=== PATIENT | male | born 1965 | race Caucasian/White ===

== ENCOUNTER 2019-12-31 09:20 | Emergency (ER) | payer BC, MEDICAID, MEDICARE ==
[~2019-12-31] VITALS: Ht 175.3 cm; Wt 73.9 kg
[~2019-12-31 09:20] MED LIST: ALBU1.25 IH; ALBU4TAB3 PO; ALBU8.5H6 IH; CLIN150C14 PO; DIVA250T4 PO; LORA-434 PO; Nicotine TD; QUET200T4 PO; QUET50TA5 PO; TRAM50TA PO; ZOLP10TA PO
[2019-12-31] MEDS ORDERED: IV NORMAL SALINE 1000ML BAG 1,000 ML IV ONE (10:15)
[2019-12-31] MEDS ORDERED: LIDOCAINE 2% JELLY 6ML IN APPLICATOR. MM ONE (10:15)
--- NOTE | 2019-12-31 10:17 | PHYS DOC ---
Past Medical History Past Medical History: Anxiety, Asthma, Bipolar, Bronchitis, COPD, Depression, MRSA Additional Past Medical Histor: scoliosis, hx of lung infection, chronic back pain, RT SHOULDER #2 SEPERATI Past Surgical History: Other Additional Past Surgical Histo: 3 ribs removed, right loaiza muscle removed d/t infection Smoking Status: Current Every Day Smoker Alcohol Use: None Drug Use: Amphetamine, Marijuana Adult General Chief Complaint Chief Complaint: URINARY RETENTION HPI HPI Patient is a pleasant 54-year-old male who presents to the emergency department for evaluation, requesting a Mason catheterization. He states he has been diagnosed with prostatic hypertrophy in the past, and actually has an appointment to see urology upcoming at in 2 days. He states that he has had difficulty initiating a urine stream, and his urine stream will stop prematurely midstream. He states he is having discomfort when his urine stream cuts off, feeling as if he has to urinate. He has not had any fevers, nausea, or vomiting. He has been eating well, but states he has been consciously limiting his liquid oral intake, to decrease his need to urinate. He has not had any dysuria, or penile discharge, and reports no sexual intercourse in the past several years. He states he does have a past history of amphetamine and marijuana abuse, but states he has been clean for several months trying to get his life back on track. There are no alleviating or exacerbating factors to his symptoms otherwise. Review of Systems Review of Systems Constitutional: Denies fever or chills [] Eyes: Denies change in visual acuity, redness, or eye pain [] HENT: Denies nasal congestion or sore throat [] Respiratory: Denies cough or shortness of breath [] Cardiovascular:The patient denies any shortness of breath, chest pain, palpitations, or orthopnea[] GI: Denies abdominal pain, nausea, vomiting, bloody stools or diarrhea [] : Denies dysuria or hematuria, or penile discharge. Denies flank pain [] Musculoskeletal: Denies back pain or joint pain [] Integument: Denies rash or skin lesions [] Neurologic: Denies headache, focal weakness or sensory changes [] Endocrine: Denies polyuria or polydipsia [] All other systems were reviewed and found to be within normal limits, except as documented in this note. Current Medications Current Medications Current Medications Medications (Trade) Dose Ordered Sig/Ayan Start Time Stop Time Status Last Admin Dose Admin Lidocaine HCl (Glydo (Lidocaine) Jelly) 1 christi 1X ONCE 12/31/19 10:15 12/31/19 10:16 DC Sodium Chloride 1,000 ml @ 1,000 mls/hr 1X ONCE 12/31/19 10:15 12/31/19 11:14 DC 12/31/19 10:40 1,000 MLS/HR Allergies Allergies Allergies Coded Allergies Type Severity Reaction Last Updated Verified No Known Drug Allergies 02/28/14 No Physical Exam Physical Exam PHYSICAL EXAM: CONSTITUTIONAL: Well developed, well nourished HEAD: normocephalic, atraumatic EENT: PERRL, EOMI. Conjunctivae normal color, sclerae non-icteric; moist mucous membranes. NECK: Supple, non-tender; no meningismus. LUNGS: Lungs CTA, breathing even and unlabored. Normal air movement. HEART: Regular rate and rhythm, no murmur CHEST: No deformity; non-tender ABDOMEN: The abdomen is soft, there is mild diffuse tenderness to palpation in lower abdomen without rebound or guarding, the remainder the abdomen is soft and non-tender, no masses or bruits. EXTREM: Normal ROM; no deformity, no calf tenderness. Normal pulses palpable in all extremities. There is no pedal edema. SKIN: No rash; no diaphoresis NEURO: Alert; normal speech and cognition; CN's grossly intact; strength grossly intact without focal deficit. BACK: No CVA TTP. GENITOURINARY:Normal external genitalia. There is no penile discharge, or testicular tenderness to palpation. Current Patient Data Vital Signs Vital Signs Date Time Temp Pulse Resp B/P (MAP) Pulse Ox O2 Delivery O2 Flow Rate FiO2 12/31/19 09:30 97.8 98 20 132/77 (95) 100 Room Air 97.8 Lab Values Laboratory Tests Test 12/31/19 10:10 12/31/19 10:30 White Blood Count 4.9 x10^3/uL (4.0-11.0) Red Blood Count 5.13 x10^6/uL (4.30-5.70) Hemoglobin 15.7 g/dL (13.0-17.5) Hematocrit 45.5 % (39.0-53.0) Mean Corpuscular Volume 89 fL (79-100) Mean Corpuscular Hemoglobin 31 pg (25-35) Mean Corpuscular Hemoglobin Concent 34 g/dL (31-37) Red Cell Distribution Width 12.9 % (11.5-14.5) Platelet Count 294 x10^3/uL (140-400) Neutrophils (%) (Auto) 59 % (31-73) Lymphocytes (%) (Auto) 27 % (24-48) Monocytes (%) (Auto) 12 % (0-9) H Eosinophils (%) (Auto) 2 % (0-3) Basophils (%) (Auto) 1 % (0-3) Neutrophils # (Auto) 2.9 x10^3/uL (1.8-7.7) Lymphocytes # (Auto) 1.3 x10^3/uL (1.0-4.8) Monocytes # (Auto) 0.6 x10^3/uL (0.0-1.1) Eosinophils # (Auto) 0.1 x10^3/uL (0.0-0.7) Basophils # (Auto) 0.0 x10^3/uL (0.0-0.2) Sodium Level 139 mmol/L (136-145) Potassium Level 4.2 mmol/L (3.5-5.1) Chloride Level 103 mmol/L (98-107) Carbon Dioxide Level 26 mmol/L (21-32) Anion Gap 10 (6-14) Blood Urea Nitrogen 14 mg/dL (8-26) Creatinine 1.1 mg/dL (0.7-1.3) Estimated GFR (Cockcroft-Gault) 70.0 BUN/Creatinine Ratio 13 (6-20) Glucose Level 87 mg/dL (70-99) Calcium Level 8.9 mg/dL (8.5-10.1) Total Bilirubin 0.2 mg/dL (0.2-1.0) Aspartate Amino Transferase (AST) 19 U/L (15-37) Alanine Aminotransferase (ALT) 29 U/L (16-63) Alkaline Phosphatase 89 U/L (46-116) Total Protein 7.3 g/dL (6.4-8.2) Albumin 3.6 g/dL (3.4-5.0) Albumin/Globulin Ratio 1.0 (1.0-1.7) Urine Collection Type U cath Urine Color Yellow Urine Clarity Clear Urine pH 5.5 Urine Specific Motley 1.010 Urine Protein Negative mg/dL (NEG-TRACE) Urine Glucose (UA) Negative mg/dL (NEG) Urine Ketones (Stick) Negative mg/dL (NEG) Urine Blood Negative (NEG) Urine Nitrite Negative (NEG) Urine Bilirubin Negative (NEG) Urine Urobilinogen Dipstick 0.2 mg/dL (0.2 mg/dL) Urine Leukocyte Esterase Negative (NEG) Urine RBC 0 /HPF (0-2) Urine WBC 0 /HPF (0-4) Urine Squamous Epithelial Cells Occ /LPF Urine Bacteria 0 /HPF (0-FEW) Laboratory Tests 12/31/19 10:10 Laboratory Tests 12/31/19 10:10 EKG EKG [] Radiology/Procedures Radiology/Procedures [] Course & Med Decision Making Course & Med Decision Making Pertinent Labs studies reviewed. (See chart for details) []11:35 AM: The patient is feeling significantly better after Mason ca theterization. Although the bladder scanner indicated approximately 175 mL of urine in the bladder, the patient has drained over 500 mL of urine. I discussed importance of close urology follow-up as scheduled and return precautions. Dragon Disclaimer Dragon Disclaimer This electronic medical record was generated, in whole or in part, using a voice recognition dictation system. Departure Departure Impression: Primary Impression: Urinary retention Disposition: 01 HOME, SELF-CARE Condition: STABLE Patient Instructions: Mason Catheter Care, Adult, Urinary Retention, Acute, Male Additional Instructions: Follow-up with urology as scheduled. Scripts Tamsulosin Hcl (FLOMAX) 0.4 Mg Cap.er.24h 1 CAP PO DAILY, #30 CAP 0 Refills Prov: MARION JANG MD 12/31/19 MARION JANG MD Dec 31, 2019 10:17
[2019-12-31 10:28] LABS: CALCIUM 8.9 mg/dL (8.5-10.1); CREATININE 1.1 mg/dL (0.7-1.3); POTASSIUM 4.2 mmol/L (3.5-5.1)
[2019-12-31 10:35] LABS: ALBUMIN 3.6 g/dL (3.4-5.0); TOTAL BILIRUBIN 0.2 mg/dL (0.2-1.0); TOTAL PROTEIN 7.3 g/dL (6.4-8.2)
[2019-12-31 10:43] LABS: BILIRUBIN,URINE NEGATIVE (NEG); CLARITY,URINE CLEAR; COLOR,URINE YELLOW; NITRITE,URINE NEGATIVE (NEG); PH,URINE 5.5; PROTEIN,URINE NEGATIVE (NEG-TRACE); UROBILINOGEN,URINE 0.2 mg/dL (0.2 mg/dL)
[2019-12-31 10:45] LABS: BASO % 1 % (0-3); EOS # 0.1 x10^3/uL (0.0-0.7); EOS % 2 % (0-3); HEMATOCRIT 45.5 % (39.0-53.0); HEMOGLOBIN 15.7 g/dL (13.0-17.5); LYMPH # 1.3 x10^3/uL (1.0-4.8); LYMPH % 27 % (24-48); MEAN CORPUSCULAR HEMOGLOBIN 31 pg (25-35); MEAN CORPUSCULAR HGB CONC 34 g/dL (31-37); MEAN CORPUSCULAR VOLUME 89 fL (79-100); MONO # 0.6 x10^3/uL (0.0-1.1); MONO % 12 % (0-9); NEUT # 2.9 x10^3/uL (1.8-7.7); NEUT % 59 % (31-73); PLATELET COUNT 294 x10^3/uL (140-400); RED BLOOD COUNT 5.13 x10^6/uL (4.30-5.70); RED CELL DISTRIBUTION WIDTH 12.9 % (11.5-14.5); WHITE BLOOD COUNT 4.9 x10^3/uL (4.0-11.0)
[2019-12-31 11:04] LABS: SQUAMOUS EPITHELIAL CELL,UR OCC /LPF
[2019-12-31 11:06] LABS: BACTERIA,URINE 0 /HPF (0-FEW); RBC,URINE 0 /HPF (0-2); WBC,URINE 0 /HPF (0-4)
[2019-12-31] MEDS ORDERED: METR500T PO (11:38)
[2019-12-31] MEDS ORDERED: TAMS0.4C97 PO (11:39)
[2019-12-31 12:15] VITALS: BP 118/61
== END 2019-12-31 12:38 | disposition home or self-care (01) ==
LOC: ER 09:20
DX: R33.9 Retention of urine, unspecified (principal); J44.1 Chronic obstructive pulmonary disease with (acute) exacerbation; F31.9 Bipolar disorder, unspecified; G89.29 Other chronic pain; Z86.14 Personal history of Methicillin resistant Staphylococcus aureus infection; F17.200 Nicotine dependence, unspecified, uncomplicated
CPT/HCPCS: 36415; 51702; 80053; 81001; 85025; 99285; J7030

== ENCOUNTER 2020-03-25 07:58 | Emergency (ER) | payer BC ==
[~2020-03-25] VITALS: Ht 172.7 cm; Wt 70.0 kg
[~2020-03-25 07:58] MED LIST changes: +METR500T PO; +TAMS0.4C97 PO
[2020-03-25 08:01] VITALS: BP 123/69
[2020-03-25] MEDS ORDERED: FLUORESCEIN OPHTH TEST STRIP. OU ONE (08:15)
[2020-03-25] MEDS ORDERED: TETRACAINE 0.5% OPHTH SOLUTION 4ML BOTTLE. OU ONE (08:15)
--- NOTE | 2020-03-25 08:41 | PHYS DOC ---
Past Medical History Past Medical History: Anxiety, Asthma, Bipolar, Bronchitis, COPD, Depression, MRSA Additional Past Medical Histor: scoliosis, hx of lung infection, chronic back pain, RT SHOULDER #2 SEPERATI Past Surgical History: Appendectomy, Tonsillectomy, Other Additional Past Surgical Histo: 3 ribs removed, right loaiza muscle removed d/t infection Smoking Status: Current Every Day Smoker Alcohol Use: None Drug Use: Amphetamine, Marijuana General Adult EDM: Chief Complaint: FOREIGN BODY/EYES HPI: HPI: Patient is a 54 year old male who presents with severe eye pain. Yesterday he was drilling into his truck and got metal in his eye. Is been having severe eye pain since then and is having a hard time opening his eye. He denies any other injuries. He denies visual changes. Review of Systems: Review of Systems: General: Denies fever, chills, sweats, fatigue Eyes: Reports drainage, eye pain HENT: Denies rhinorrhea, sore throat Respiratory: Denies cough, shortness of breath, wheezing Cardiac: Denies edema, palpitations, chest pain GI: Denies abdominal pain, N/V MSK: Denies back pain, neck pain Skin: Denies rash, jaundice Neuro: Denies headache, dizziness Psychiatric: Denies SI/HI Heart Score: Risk Factors: Risk Factors: DM, Current or recent (<one month) smoker, HTN, HLP, family history of CAD, obesity. Risk Scores: Score 0 - 3: 2.5% MACE over next 6 weeks - Discharge Home Score 4 - 6: 20.3% MACE over next 6 weeks - Admit for Clinical Observation Score 7 - 10: 72.7% MACE over next 6 weeks - Early Invasive Strategies Current Medications: Current Medications Medications (Trade) Dose Ordered Sig/Ayan Start Time Stop Time Status Last Admin Dose Admin Fluorescein Sodium (Ful-Tatyana) 1 strip 1X ONCE 03/25/20 08:15 03/25/20 08:16 DC 03/25/20 08:14 1 STRIP Tetracaine HCl (Tetracaine) 1 drop 1X ONCE 03/25/20 08:15 03/25/20 08:16 DC 03/25/20 08:14 1 DROP Allergies: Allergies: Allergies Coded Allergies Type Severity Reaction Last Updated Verified No Known Drug Allergies 02/28/14 No Physical Exam: PE: Constitutional: Well developed, well nourished, Cooperative, NAD, non-toxic appearing HENT: Normocephalic, atraumatic, oropharynx moist, EOMI, PERRL Eye: R eye: chemosis, small foreign body at 6 o'clock position Neck: Supple, normal range of motion, no stridor Cardiovascular: RRR, 2+ radial pulses bilaterally, no edema Skin: Warm, dry, intact Extremities: No obvious deformities Neurologic: Alert and Oriented x3, motor and sensory function grossly normal, no focal deficits Psychologic: Normal affect, normal judgment, normal mood. No SI/HI Current Patient Data: Vital Signs: Vital Signs Date Time Temp Pulse Resp B/P (MAP) Pulse Ox O2 Delivery O2 Flow Rate FiO2 03/25/20 08:01 97.9 80 18 123/69 (87) 98 Room Air 97.9 EKG: EKG: [] Radiology/Procedures: Radiology/Procedures: [] Impression: Foreign body in R eye Course & Med Decision Making: Course & Med Decision Making Pertinent Labs and Imaging studies reviewed. (See chart for details) Patient is 54-year-old male presents to the emergency room with metal in his right eye. Removal was attempted after I was numbed with tetracaine. Top part was able to be removed but embedded part was unable to be removed. I have discussed the case with Dr. Montesinos who will remove it in clinic. Patient will be sent straight over to clinic. Tutu Disclaimer: Tutu Disclaimer: This electronic medical record was generated, in whole or in part, using a voice recognition dictation system. Departure Departure Referrals: NO PCP (PCP) EDVIN CHI MD March 25, 2020 08:41
== END 2020-03-25 09:04 | disposition home or self-care (01) ==
LOC: ER 07:58
DX: T15.91XA Foreign body on external eye, part unspecified, right eye, initial encounter (principal); J44.9 Chronic obstructive pulmonary disease, unspecified; F31.9 Bipolar disorder, unspecified; G89.29 Other chronic pain; F17.200 Nicotine dependence, unspecified, uncomplicated; Z86.14 Personal history of Methicillin resistant Staphylococcus aureus infection; W22.8XXA Striking against or struck by other objects, initial encounter; Y93.89 Activity, other specified; Y92.69 Other specified industrial and construction area as the place of occurrence of the external cause; Y99.0 Civilian activity done for income or pay
CPT/HCPCS: 65205; 99284